=== PATIENT | male | born 2000 | race Caucasian/White ===

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

== ENCOUNTER 2021-06-18 20:39 | Observation (INO) | payer BC, OTHER ==
[2021-06-18] MEDS ORDERED: Sodium Chloride 0.9% 10 ML Syringe FLUSH PRN (21:02)
[2021-06-18] MEDS ORDERED: Dexamethasone 10 MG/ML SDV IVPUSH ONE (21:03)
[2021-06-18] MEDS ORDERED: HYDROmorphone 1 MG/ML Syringe IVPUSH ONE (21:03)
[2021-06-18] MEDS ORDERED: Ketorolac 30 MG/ML SDV IVPUSH ONE (21:03)
[2021-06-18] MEDS ORDERED: Sodium Chloride 0.9% 1,000 ML IV ONE (21:10)
[2021-06-18] MEDS ORDERED: Sodium Chloride 0.9% 10 ML SDV FLUSH ONE (21:25)
[2021-06-18] MEDS ORDERED: Iopamidol 612 MG/ML 100 ML Bottle IVPUSH ONE (21:25)
[2021-06-18] MEDS ORDERED: Clindamycin Phosphate in D5W 900 MG in Premix Bag 1 BAG IV ONE ×2 (22:44)
[2021-06-18] MEDS ORDERED: cefTRIAXone 2 GM in Sodium Chloride 0.9% 100 ML IV ONE (23:08)
[2021-06-19] MEDS ORDERED: HYDROmorphone 1 MG/ML Syringe IVPUSH PRN (01:05)
[2021-06-19] MEDS ORDERED: Sodium Chloride 0.9% 1,000 ML IV SCH (01:15)
[2021-06-19] MEDS: metroNIDAZOLE/Normal Saline 500 MG in Premix Bag 1 BAG IV SCH ×3 (05:31→21:07)
[2021-06-19] MEDS: Ketorolac 30 MG/ML SDV IVPUSH PRN ×2 (05:40→16:00)
[2021-06-19] MEDS: Nicotine 21 MG/24 Hr Patch TRDERM SCH (11:16)
[2021-06-19] MEDS: Nicotine Polacrilex 2 MG Gum CHEW PRN ×2 (12:16→17:44)
[2021-06-19] MEDS: Enoxaparin 30 MG/0.3 ML Syringe SUBCUT SCH (19:00)
[2021-06-19] MEDS ORDERED: cefTRIAXone 2 GM in Sodium Chloride 0.9% 100 ML IV SCH (23:00)
[2021-06-20] MEDS ORDERED: Zolpidem 5 MG Tab PO ONE (01:01)
[2021-06-20] MEDS: metroNIDAZOLE/Normal Saline 500 MG in Premix Bag 1 BAG IV SCH (05:32)
[2021-06-20] MEDS: Enoxaparin 30 MG/0.3 ML Syringe SUBCUT SCH (05:46)
[2021-06-20] MEDS: Nicotine Polacrilex 2 MG Gum CHEW PRN (08:54)
[2021-06-20] MEDS: Nicotine 21 MG/24 Hr Patch TRDERM SCH (08:54)
== END 2021-06-20 11:50 | disposition home or self-care (01) ==
LOC: JD.ED 20:39 → JD.ICU 23:47
PROVIDERS: ADMIT Family Medicine; ATTEND Family Medicine
DX: J39.2 Other diseases of pharynx (principal); J02.9 Acute pharyngitis, unspecified; R59.0 Localized enlarged lymph nodes; J45.909 Unspecified asthma, uncomplicated; F17.210 Nicotine dependence, cigarettes, uncomplicated; E66.01 Morbid (severe) obesity due to excess calories; Z88.0 Allergy status to penicillin; Z88.5 Allergy status to narcotic agent; Z88.8 Allergy status to other drugs, medicaments and biological substances; Z98.890 Other specified postprocedural states; Z79.899 Other long term (current) drug therapy; Z20.822 Contact with and (suspected) exposure to COVID-19
CPT/HCPCS: 36415; 70490; 70491; 80053; 85007; 85025; 85027; 86140; 86308; 87635; 87804; 96365; 96367; 96375; 96376; 99285; A9270; G0378; J0696; J1100; J1170; J1885; J3490; J7030; Q9967; U0002

== ENCOUNTER 2023-11-05 17:22 | Emergency (ER) | payer BC ==
[2023-11-05] MEDS: HYDROmorphone 0.5 MG/0.5 ML Syringe IVPUSH ONE (18:05)
[2023-11-05] MEDS: Sodium Chloride 0.9% 10 ML Syringe FLUSH PRN (18:06)
[2023-11-05 18:11] LABS: BASOPHILS PERCENT AUTO 0.3 % (0.0-1.0); EOSINOPHILS ABSOLUTE AUTO 0.1 K/mm3 (0.0-0.4); EOSINOPHILS PERCENT AUTO 1.1 % (0.0-6.0); HEMATOCRIT 42.3 % (42.0-52.0); HEMOGLOBIN 14.3 gm/dl (14.0-18.0); IMMATURE GRAN ABSOLUTE AUTO 0.02 K/mm3 (0.00-0.05); IMMATURE GRAN PERCENT AUTO 0.3 % (0.0-0.4); LYMPHOCYTES ABSOLUTE AUTO 1.8 K/mm3 (1.0-4.8); LYMPHOCYTES PERCENT AUTO 25.7 % (24.0-44.0); MEAN CORPUSCULAR HEMOGLOBIN 28.7 pg (28.0-32.0); MEAN CORPUSCULAR HGB CONC 33.8 g/dl (32.0-36.0); MEAN CORPUSCULAR VOLUME 84.8 fl (83.0-99.0); MEAN PLATELET VOLUME 9.6 fl (9.4-12.4); MONOCYTES ABSOLUTE AUTO 0.5 K/mm3 (0.0-0.8); MONOCYTES PERCENT AUTO 6.7 % (0.0-8.0); NEUTROPHILS ABSOLUTE AUTO 4.7 K/mm3 (1.8-7.7); NEUTROPHILS PERCENT AUTO 65.9 % (41.0-71.0); PLATELET COUNT,PLT 218 K/mm3 (150-400); RED BLOOD CELL COUNT 4.99 M/mm3 (4.52-5.90); WHITE BLOOD CELL COUNT,WBC 7.12 K/mm3 (3.9-11.3)
[2023-11-05] MEDS ORDERED: Iopamidol 612 MG/ML 30 ML SDV IVPUSH ONE (18:30)
[2023-11-05] MEDS: Iopamidol 612 MG/ML 30 ML SDV IVPUSH ONE (18:30)
[2023-11-05] MEDS: Iopamidol 612 MG/ML 100 ML Bottle IVPUSH ONE (18:30)
[2023-11-05 18:31] LABS: A/G RATIO 1.3 (1-2); ALBUMIN 4.2 g/dl (3.4-5.0); BILIRUBIN TOTAL 0.8 mg/dL (0.2-1.0); BUN/CREATININE RATIO 18.9 (14-18); CALCIUM 8.8 mg/dL (8.5-10.1); CREATININE 0.9 mg/dL (0.7-1.3); EST CRCL DRUG DOSING (CG) 153.87 mL/min; PROTEIN TOTAL,TP 7.5 g/dl (6.4-8.2)
[2023-11-05] MEDS: Orphenadrine 60 MG/2 ML Inj IV ONE (18:59)
== END 2023-11-05 19:22 | disposition home or self-care (01) ==
LOC: JD.ED 17:22
DX: S29.011A Strain of muscle and tendon of front wall of thorax, initial encounter (principal); Z88.0 Allergy status to penicillin; Z88.5 Allergy status to narcotic agent; Z88.1 Allergy status to other antibiotic agents; Z79.899 Other long term (current) drug therapy; V86.55XA Driver of 3- or 4- wheeled all-terrain vehicle (ATV) injured in nontraffic accident, initial encounter; Y93.89 Activity, other specified
CPT/HCPCS: 36415; 71260; 74177; 80053; 83690; 85025; 96374; 96375; 99284; J1170; J2360; J3490; Q9967

== ENCOUNTER 2024-06-07 19:37 | Emergency (ER) | payer BC ==
[2024-06-07] MEDS: Proparacaine 0.5% Ophth Soln 15 ML Bottle EYERT ONE (20:09)
[2024-06-07] MEDS: Fluorescein 1 MG Ophth Strip EYERT ONE (20:10)
[2024-06-07] MEDS: Erythromycin Base 0.5% Ophth Oint 1 GM Tube EYERT ONE (20:15)
== END 2024-06-07 20:46 | disposition home or self-care (01) ==
LOC: JD.ED 19:37
DX: S05.01XA Injury of conjunctiva and corneal abrasion without foreign body, right eye, initial encounter (principal); J45.909 Unspecified asthma, uncomplicated; Z90.89 Acquired absence of other organs; Z88.0 Allergy status to penicillin; Z88.5 Allergy status to narcotic agent; Z88.8 Allergy status to other drugs, medicaments and biological substances; Z79.899 Other long term (current) drug therapy; W31.1XXA Contact with metalworking machines, initial encounter
CPT/HCPCS: 99283; A9270; J3490

== ENCOUNTER 2024-09-04 00:05 | Emergency (ER) | payer BC, OTHER ==
[2024-09-04] MEDS: Fluorescein 1 MG Ophth Strip ONE (00:49)
[2024-09-04] MEDS: Fluorescein 1 MG Ophth Strip EYELF ONE (01:28)
[2024-09-04] MEDS: Erythromycin Base 0.5% Ophth Oint 1 GM Tube EYELF ONE (01:28)
[2024-09-04] MEDS: Tetracaine HCl/PF 0.5% 4 ML Bottle EYELF ONE (01:48)
== END 2024-09-04 01:39 | disposition home or self-care (01) ==
LOC: JD.ED 00:05
DX: T15.82XA Foreign body in other and multiple parts of external eye, left eye, initial encounter (principal); T15.12XA Foreign body in conjunctival sac, left eye, initial encounter; J45.909 Unspecified asthma, uncomplicated; F17.210 Nicotine dependence, cigarettes, uncomplicated; Z88.8 Allergy status to other drugs, medicaments and biological substances; Z88.1 Allergy status to other antibiotic agents; Z88.0 Allergy status to penicillin; W44.8XXA Other foreign body entering into or through a natural orifice, initial encounter
CPT/HCPCS: 65220; 99283-25; A9270-GY